=== PATIENT | female | born 1990 | race Caucasian/White ===

== ENCOUNTER 2025-06-30 06:58 | Inpatient (IN) | payer OTHER, SELFPAY ==
[2025-06-30 07:41] VITALS: BP 107/55; BMI 35.0
[2025-06-30 08:02] LABS: Hematocrit 37.1 % (37.0-47.0); Hemoglobin 12.4 g/dL (12.0-16.0); Mean Corp Hgb Conc. 33.4 g/dL (33.0-37.0); Mean Corpuscular Volume 83.6 fL (81.0-99.0); Platelet Count 186 10^3/uL (130-400); Red Cell Dist. Width 14.3 % (11.5-14.5)
[2025-06-30] MEDS: TYLENOL 975 MG PO (09:10)
[2025-06-30] MEDS: LR 1000 IV (09:11)
[2025-06-30] MEDS: ANCEF 10 IV (09:12)
[2025-06-30] MEDS: BICITRA 30 ML PO (09:12)
[2025-06-30] MEDS: TORADOL 15 MG IV ×2 (16:05→22:02)
[2025-06-30] MEDS: COLACE 100 MG PO (19:43)
[2025-06-30] MEDS: FLUSH (NSS) 3 FLUSH IV (22:02)
[2025-07-01] MEDS: TORADOL 15 MG IV ×2 (03:57→10:28)
[2025-07-01] MEDS: FLUSH (NSS) 3 FLUSH IV (04:00)
[2025-07-01 04:53] LABS: Hematocrit 32.1 % (37.0-47.0); Hemoglobin 11.0 g/dL (12.0-16.0); Mean Corp Hgb Conc. 34.3 g/dL (33.0-37.0); Mean Corpuscular Volume 85.4 fL (81.0-99.0); Platelet Count 167 10^3/uL (130-400); Red Cell Dist. Width 14.2 % (11.5-14.5)
[2025-07-01] MEDS: PRENATAL PLUS 1 TABLET PO (08:46)
[2025-07-01] MEDS: COLACE 100 MG PO ×2 (08:46→19:30)
--- NOTE | 2025-07-01 16:02 | W.PN.ANS.POP ---
Anesthesia Post Operative
- Anesthesia Post Op Note
Vital Signs Stable-See Nursing Note: Yes
Airway Patent: Yes
Adequate Pain Control: Yes
Change in Mental Status: No
Current Postoperative Nausea & Vomiting: No
Anesthesia Complications: No
General Anesthetic Recall: No
Unplanned Admission: No
Post Op Hydration Adequate: Yes
[2025-07-01] MEDS: TYLENOL 650 MG PO (16:40)
[2025-07-01] MEDS: MOTRIN 600 MG PO (16:40)
[2025-07-02] MEDS: MOTRIN 600 MG PO ×2 (03:40→08:47)
[2025-07-02] MEDS: TYLENOL 650 MG PO (03:41)
[2025-07-02] MEDS: COLACE 100 MG PO (08:47)
[2025-07-02] MEDS: PRENATAL PLUS 1 TABLET PO (08:47)
[2025-07-03 16:28] LABS: Syphilis/T. pallidum Ab Reflex Negative (Negative)
== END 2025-07-02 11:30 | disposition home or self-care (01) | DRG 788 ==
LOC: LDRP 06:58
PROVIDERS: ADMITTING PHYSICIAN Obstetrics & Gynecology
PROC: 10D00Z1 Extraction of Products of Conception, Low, Open Approach (ICD-10-PCS; 2025-06-30)
DX: O34.211 Maternal care for low transverse scar from previous cesarean delivery (principal); Z3A.39 39 weeks gestation of pregnancy; Z37.0 Single live birth; O99.214 Obesity complicating childbirth; O77.0 Labor and delivery complicated by meconium in amniotic fluid; Z82.49 Family history of ischemic heart disease and other diseases of the circulatory system; Z98.82 Breast implant status
CPT/HCPCS: 36415; 85027; 86780; 86850; 86900; 86901; 88307